=== PATIENT | male | born 1985 | race African-American/Black ===

== ENCOUNTER 2020-04-16 02:45 | Emergency (ER) | payer OTHER ==
[~2020-04-16] VITALS: Ht 175.3 cm; Wt 77.1 kg
[~2020-04-16 02:45] MED LIST: ASPERCREME1 EACH TOP; IBUPROFEN 800800 M1 PO; NORFLEX100 MG PO
[2020-04-16] MEDS ORDERED: BACTRIM DS TAB1 EAC1 PO (03:07)
[2020-04-16] MEDS ORDERED: CIPROFLOXACIN500 M1 PO (04:53)
[2020-04-16] MEDS ORDERED: ULTRAM 50MG TAB50 MG PO (04:53)
[2020-04-16] MEDS ORDERED: IBUPROFEN 800800 MG PO (04:53)
[2020-04-16 05:11] VITALS: BP 106/56
== END 2020-04-16 05:12 | disposition home or self-care (01) ==
LOC: ER 02:45
DX: L02.611 Cutaneous abscess of right foot (principal); Z79.1 Long term (current) use of non-steroidal anti-inflammatories (NSAID); Z79.899 Other long term (current) drug therapy

== ENCOUNTER 2021-01-24 14:58 | Emergency (ER) | payer OTHER ==
[~2021-01-24] VITALS: Ht 177.8 cm; Wt 79.4 kg
[~2021-01-24 14:58] MED LIST changes: +BACTRIM DS TAB1 EAC1 PO; +CIPROFLOXACIN500 M1 PO; +IBUPROFEN 800800 MG PO; +ULTRAM 50MG TAB50 MG PO
[2021-01-24 15:05] VITALS: BP 124/73
[2021-01-24] MEDS ORDERED: AMOXICILLIN500 M1 PO (15:23)
== END 2021-01-24 15:46 | disposition home or self-care (01) ==
LOC: ER 14:58
DX: K04.7 Periapical abscess without sinus (principal); Z79.2 Long term (current) use of antibiotics; Z79.899 Other long term (current) drug therapy